=== PATIENT | female | born 1980 | race Asian ===

== ENCOUNTER 2018-06-30 19:51 | Inpatient (IN) | payer MEDICAID ==
[2018-06-30 22:31] LABS: ADD MAN DIFF? NO
[2018-06-30 22:39] LABS: WHITE BLOOD COUNT 8.9 10^3/ul (4.8-10.8)
[2018-06-30 22:39] LABS: BASOPHILS % 0.2 % (0.0-2.0); EOSINOPHILS # 0.1 10^3/ul (0.0-0.5); EOSINOPHILS % 0.7 % (0.0-7.0); HEMATOCRIT 36.8 % (37.0-47.0); HEMOGLOBIN 12.4 g/dl (12.0-16.0); LYMPHOCYTES # 1.5 10^3/ul (0.8-2.9); LYMPHOCYTES % 17.3 % (15.0-51.0); MEAN CORPUSCULAR HEMOGLOBIN 32.1 pg (29.0-33.0); MEAN CORPUSCULAR HGB CONC 33.7 g/dl (32.0-37.0); MEAN CORPUSCULAR VOLUME 95.3 fl (82.0-101.0); MEAN PLATELET VOLUME 10.5 fl (7.4-10.4); MONOCYTE # 0.7 10^3/ul (0.3-0.9); MONOCYTES % 8.1 % (0.0-11.0); NEUTROPHIL # 6.5 10^3/ul (1.6-7.5); NEUTROPHILS % 72.8 % (39.0-77.0); PLATELET COUNT 193 10^3/UL (140-415); RED BLOOD COUNT 3.86 10^6/ul (4.20-5.40); RED CELL DISTRIBUTION WIDTH 12.2 % (11.5-14.5)
[2018-06-30 22:48] LABS: HEMOGLOBIN A1C 5.3 % (0-5.9)
[2018-06-30 23:05] LABS: ALANINE AMINOTRANSFERASE 18 IU/L (13-69); ALBUMIN 3.5 g/dl (3.3-4.9); ALBUMIN/GLOBULIN RATIO 1.02; ALKALINE PHOSPHATASE 191 IU/L (42-121); ANION GAP 9 (5-13); ASPARTATE AMINO TRANSFERASE 24 IU/L (15-46); BILIRUBIN,INDIRECT 0.3 mg/dl (0-1.1); BILIRUBIN,TOTAL 0.3 mg/dl (0.2-1.3); BLOOD UREA NITROGEN 8 mg/dl (7-20); CALCIUM 9.2 mg/dl (8.4-10.2); CARBON DIOXIDE 21 mmol/L (21-31); CHLORIDE 107 mmol/L (97-110); CREATININE 0.44 mg/dl (0.44-1.00); Estimated GFR > 60 mL/min (>60); GLUCOSE 117 mg/dl (70-220); POTASSIUM 3.6 mmol/L (3.5-5.1); SODIUM 137 mmol/L (135-144); TOTAL PROTEIN 6.9 g/dl (6.1-8.1)
[2018-07-01] MEDS ORDERED: ACCU-CHEK XX (06:00)
== END 2018-07-01 16:01 | disposition home or self-care (01) | DRG 833 ==
LOC: OBT 19:51 → L-D 19:54 → OBT 20:35 → L-D 20:35
DX: O24.419 Gestational diabetes mellitus in pregnancy, unspecified control (principal); Z3A.37 37 weeks gestation of pregnancy
CPT/HCPCS: 76815; 76818; 80053; 82962; 83036; 85025

== ENCOUNTER 2018-07-03 13:42 | Inpatient (IN) | payer MEDICAID ==
[2018-07-03] MEDS ORDERED: LIDOCAINE 1% (MPF) 30 ML INJ INJ (14:30)
[2018-07-03] MEDS ORDERED: CARBOPROST 250 MCG INJ IM ×2 (14:30→23:30)
[2018-07-03] MEDS ORDERED: MISOPROSTOL 200 MCG TAB PR ×2 (14:30→23:30)
[2018-07-03] MEDS ORDERED: METHYLERGONOVINE 0.2 MG INJ IM ×2 (14:30→23:30)
[2018-07-03] MEDS ORDERED: BUTORPHANOL 2 MG INJ IV (14:30)
[2018-07-03] MEDS ORDERED: BUTORPHANOL 1 MG INJ IV (14:30)
[2018-07-03] MEDS ORDERED: OXYTOCIN 30 UNITS/LR 500 ML IV ×3 (14:30→23:30)
[2018-07-03 14:54] LABS: ADD MAN DIFF? NO
[2018-07-03 14:56] LABS: BASOPHILS % 0.1 % (0.0-2.0); EOSINOPHILS % 0.5 % (0.0-7.0); HEMATOCRIT 36.5 % (37.0-47.0); HEMOGLOBIN 12.2 g/dl (12.0-16.0); LYMPHOCYTES # 1.2 10^3/ul (0.8-2.9); LYMPHOCYTES % 15.6 % (15.0-51.0); MEAN CORPUSCULAR HEMOGLOBIN 31.6 pg (29.0-33.0); MEAN CORPUSCULAR HGB CONC 33.4 g/dl (32.0-37.0); MEAN CORPUSCULAR VOLUME 94.6 fl (82.0-101.0); MEAN PLATELET VOLUME 9.9 fl (7.4-10.4); MONOCYTE # 0.7 10^3/ul (0.3-0.9); MONOCYTES % 8.7 % (0.0-11.0); NEUTROPHIL # 5.9 10^3/ul (1.6-7.5); NEUTROPHILS % 74.5 % (39.0-77.0); PLATELET COUNT 200 10^3/UL (140-415); RED BLOOD COUNT 3.86 10^6/ul (4.20-5.40); RED CELL DISTRIBUTION WIDTH 11.9 % (11.5-14.5)
[2018-07-03] MEDS: LACTATED RINGER'S 1,000 ML IV ×3 (15:00→19:32)
[2018-07-03 15:10] LABS: INR 0.86; PROTIME 11.8 Sec (11.9-14.9); PT RATIO 0.9
[2018-07-03 15:11] LABS: PARTIAL THROMBOPLASTIN TIME 29.4 Sec (23.0-35.0)
[2018-07-03] MEDS ORDERED: ZOLPIDEM 5 MG TAB PO (16:30)
[2018-07-03] MEDS ORDERED: KETOROLAC 30 MG INJ IV (16:30)
[2018-07-03] MEDS ORDERED: HYDROmorphONE 0.5 MG/0.5 ML SYG IV ×2 (16:30)
[2018-07-03] MEDS ORDERED: NALOXONE (0.4 MG/ML) INJ IV (16:30)
[2018-07-03] MEDS ORDERED: ONDANSETRON 4 MG INJ IV (16:30)
[2018-07-03] MEDS ORDERED: DIPHENHYDRAMINE 50 MG INJ IV (16:30)
[2018-07-03] MEDS ORDERED: FENTAnyl 2MCG/ML-ROPIV 0.2% 100 ML BAG EPI (16:30)
[2018-07-03] MEDS: OXYTOCIN 30 UNITS/LR 500 ML IV ×2 (18:41→21:06)
[2018-07-03 19:26] LABS: RAPID PLASMA REAGIN NONREACTIVE (NR)
[2018-07-03] MEDS ORDERED: HYDROCODONE/APAP (5/325) TAB PO (23:30)
[2018-07-03] MEDS ORDERED: ACETAMINOPHEN 325 MG TAB PO (23:30)
[2018-07-03] MEDS: WITCH HAZEL/GLYCERIN PAD PR (23:47)
[2018-07-03] MEDS: IBUPROFEN 600 MG TAB PO (23:47)
[2018-07-03] MEDS: DIBUCAINE 1% 30 GM OINT TOP (23:48)
[2018-07-03] MEDS: BENZOCAINE 20% 56 ML SPRAY TOP (23:48)
[2018-07-04] MEDS: LACTATED RINGER'S 1,000 ML IV* ×4 (01:28→23:24)
[2018-07-04] MEDS: IBUPROFEN 600 MG TAB PO ×4 (06:15→23:34)
[2018-07-04 08:20] LABS: ADD MAN DIFF? NO
[2018-07-04 08:29] LABS: WHITE BLOOD COUNT 13.9 10^3/ul (4.8-10.8)
[2018-07-04 08:29] LABS: BASOPHILS % 0.1 % (0.0-2.0); EOSINOPHILS % 0.3 % (0.0-7.0); HEMATOCRIT 35.4 % (37.0-47.0); HEMOGLOBIN 11.9 g/dl (12.0-16.0); LYMPHOCYTES # 1.5 10^3/ul (0.8-2.9); LYMPHOCYTES % 10.9 % (15.0-51.0); MEAN CORPUSCULAR HGB CONC 33.6 g/dl (32.0-37.0); MEAN CORPUSCULAR VOLUME 95.2 fl (82.0-101.0); MEAN PLATELET VOLUME 10.4 fl (7.4-10.4); MONOCYTE # 0.9 10^3/ul (0.3-0.9); MONOCYTES % 6.3 % (0.0-11.0); NEUTROPHIL # 11.4 10^3/ul (1.6-7.5); NEUTROPHILS % 81.8 % (39.0-77.0); PLATELET COUNT 190 10^3/UL (140-415); RED BLOOD COUNT 3.72 10^6/ul (4.20-5.40); RED CELL DISTRIBUTION WIDTH 12.1 % (11.5-14.5)
[2018-07-04] MEDS: SENNA/DOCUSATE NA (8.6MG/50MG) TAB PO ×2 (10:15→21:08)
[2018-07-05] MEDS: IBUPROFEN 600 MG TAB PO ×2 (05:54→12:15)
[2018-07-05] MEDS: SENNA/DOCUSATE NA (8.6MG/50MG) TAB PO (08:20)
[2018-07-05] MEDS: DIPHTH/TET/ACEL PERTUSS (ADULT) 0.5 ML VIAL IM* (14:01)
== END 2018-07-05 15:05 | disposition home or self-care (01) | DRG 807 ==
LOC: OBT 13:42 → L-D 13:42 → OBT 14:10 → L-D 14:10 → PP1 22:54
PROVIDERS: Obstetrics & Gynecology
PROC: 10E0XZZ Delivery of Products of Conception, External Approach (ICD-10-PCS; principal; 2018-07-03)
PROC: 0HQ9XZZ Repair Perineum Skin, External Approach (ICD-10-PCS; 2018-07-03)
DX: O24.429 Gestational diabetes mellitus in childbirth, unspecified control (principal); Z37.0 Single live birth; O70.0 First degree perineal laceration during delivery; O69.81X0 Labor and delivery complicated by cord around neck, without compression, not applicable or unspecified; O77.0 Labor and delivery complicated by meconium in amniotic fluid; Z3A.37 37 weeks gestation of pregnancy; Z23 Encounter for immunization
CPT/HCPCS: 82962; 85025; 85610; 85730; 86592; 86850; 86900; 86901; 90715; 99464